=== PATIENT | female | born 1960 | race Caucasian/White ===

== ENCOUNTER 2022-04-22 11:03 | Day surgery (SDC) | payer BC ==
[2022-04-13 17:28] VITALS: BMI 20.7
[2022-04-22 14:52] VITALS: RESP 18; TEMP 97.8
[2022-04-22 14:53] VITALS: BP 101/61; PULSE 64
== END 2022-04-22 13:05 | disposition home or self-care (01) ==
LOC: FASU-ENDO 11:03
PROVIDERS: ATTEND Internal Medicine Gastroenterology
PROC: 0DBN8ZX Excision of Sigmoid Colon, Via Natural or Artificial Opening Endoscopic, Diagnostic (ICD-10-PCS; 2022-04-22)
PROC: 0DBP8ZX Excision of Rectum, Via Natural or Artificial Opening Endoscopic, Diagnostic (ICD-10-PCS; principal; 2022-04-22 11:51)
DX: Z12.11 Encounter for screening for malignant neoplasm of colon (principal); D12.8 Benign neoplasm of rectum; K63.5 Polyp of colon; K57.30 Diverticulosis of large intestine without perforation or abscess without bleeding; K64.1 Second degree hemorrhoids; K64.8 Other hemorrhoids
CPT/HCPCS: 88305-TC